=== PATIENT | female | born 1995 | race Two or more races ===

== ENCOUNTER 2018-06-03 13:59 | Inpatient (IN) | payer OTHER ==
[~2018-06-03] VITALS: Ht 160 cm; Wt 83.0 kg
[2018-06-03] MEDS ORDERED: PRENATAL TABLE1 EACH (14:59)
== END 2018-06-06 17:08 | disposition home or self-care (01) | DRG 766 ==
LOC: OB/GYN 13:59 → EDBD 13:59 → EDSEX 13:59 → LDR 13:59 → EDSEX 16:15 → LDR 16:15 → OB/GYN 18:14
PROVIDERS: Specialist
PROC: 4A1HXCZ Monitoring of Products of Conception, Cardiac Rate, External Approach (ICD-10-PCS; 2018-06-03)
PROC: 4A033R1 Measurement of Arterial Saturation, Peripheral, Percutaneous Approach (ICD-10-PCS; 2018-06-03)
PROC: 10D00Z1 Extraction of Products of Conception, Low, Open Approach (ICD-10-PCS; principal; 2018-06-03 16:15)
DX: O76 Abnormality in fetal heart rate and rhythm complicating labor and delivery (principal); Z3A.38 38 weeks gestation of pregnancy; Z37.0 Single live birth